=== PATIENT | male | born 1985 | race Caucasian/White ===

== ENCOUNTER → 2022-04-07 09:54 | Outpatient (BNVA) | payer BC, SELFPAY | PROVIDERS: PCP Family Medicine; Visit Provider Family Medicine | DX: E11.9 Type 2 diabetes mellitus without complications (principal) | CPT/HCPCS: 80053; 80061; 83036; 85025 ==

== ENCOUNTER → 2022-07-14 09:59 | Outpatient (BNVA) | payer BC, SELFPAY | PROVIDERS: PCP Family Medicine; Visit Provider Family Medicine | DX: N23 Unspecified renal colic (principal); E11.9 Type 2 diabetes mellitus without complications; F32.0 Major depressive disorder, single episode, mild | CPT/HCPCS: 80053; 81000; 83036 ==

== ENCOUNTER → 2023-01-16 11:00 | Outpatient (BNVA) | payer BC, SELFPAY | PROVIDERS: PCP Family Medicine; Visit Provider Family Medicine | DX: E11.9 Type 2 diabetes mellitus without complications (principal); F32.0 Major depressive disorder, single episode, mild; G47.00 Insomnia, unspecified; F17.200 Nicotine dependence, unspecified, uncomplicated; Z68.42 Body mass index [BMI] 45.0-49.9, adult | CPT/HCPCS: 80053; 83036 ==

== ENCOUNTER → 2023-11-16 08:34 | Outpatient (BNVA) | payer OTHER, SELFPAY | PROVIDERS: PCP Family Medicine; Visit Provider Family Medicine | DX: E11.9 Type 2 diabetes mellitus without complications (principal) | CPT/HCPCS: 80053; 83036; 85025 ==